=== PATIENT | female | born 1955 | race Caucasian/White ===

== ENCOUNTER 2018-08-12 13:44 | Outpatient (CLI) | payer BC | END 2018-08-12 13:45 | disposition home or self-care (01) | LOC: BICMAMMO 13:44 | PROVIDERS: ATTEND Family Medicine | DX: M81.0 Age-related osteoporosis without current pathological fracture (principal) | CPT/HCPCS: 77080 ==

== ENCOUNTER 2018-08-20 08:45 | Outpatient (CLI) | payer BC | END 2018-08-20 08:46 | disposition home or self-care (01) | LOC: BICMAMMO 08:45 | PROVIDERS: ATTEND Family Medicine | DX: Z12.31 Encounter for screening mammogram for malignant neoplasm of breast (principal) | CPT/HCPCS: 77063; 77067 ==

== ENCOUNTER 2020-02-08 10:00 | Outpatient (CLI) | payer BC ==
--- NOTE | 2020-02-08 10:47 | BD ---
BONE DENSITOMETRY USING DEXA: Date: 02/08/2020 HISTORY: Age-related osteoporosis without current pathologic fracture. Postmenopausal screening for osteoporos is. FINDINGS: Lumbar Spine: BMD (g/cm2) L1 0.860 T-Score: -1.2 Z-Score: 0.3 L2 0.946 T-Score: -0.7 Z-Score: 0.9 L3 1.045 T-Score: -0.4 Z-Score: 1.4 L4 1.064 T-Score: 0.0 Z-Score: 1.8 L1-L4 0.984 T-Score: -0.6 Z-Score: 1.1 Femoral Neck: 0.647 T-Score: -1.8 Z-Score: -0.4 Total Femur: 0.758 T-Score: -1.5 Z-Score: -0.4 IMPRESSION: Osteopenia. POS: [facility]
== END 2020-02-08 10:01 | disposition home or self-care (01) ==
LOC: BICMAMMO 10:00
PROVIDERS: ATTEND Family Medicine
DX: M81.0 Age-related osteoporosis without current pathological fracture (principal); M85.89 Other specified disorders of bone density and structure, multiple sites
CPT/HCPCS: 77080

== ENCOUNTER 2022-07-17 10:23 | Outpatient (CLI) | payer MEDICARE, BC | END 2022-07-17 10:24 | disposition home or self-care (01) | LOC: BICMAMMO 10:23 | PROVIDERS: ATTEND Family Medicine | DX: Z12.31 Encounter for screening mammogram for malignant neoplasm of breast (principal) | CPT/HCPCS: 77063; 77067 ==

== ENCOUNTER 2023-05-15 08:32 | Emergency (ER) | payer MEDICARE, BC | END 2023-05-15 10:00 | disposition home or self-care (01) | LOC: ERS 08:32 | DX: S76.012A Strain of muscle, fascia and tendon of left hip, initial encounter (principal); E78.5 Hyperlipidemia, unspecified; I10 Essential (primary) hypertension; W18.30XA Fall on same level, unspecified, initial encounter; Z79.899 Other long term (current) drug therapy ==